=== PATIENT | male | born 1985 | race Caucasian/White ===

== ENCOUNTER 2017-03-30 09:33 | Emergency (ER) | payer OTHER ==
--- NOTE | 2017-03-30 09:38 | PDOC ---
History of Present Illness - General Chief Complaint: Bite Stated Complaint: ANIMAL BITE TO NOSE Time Seen by Provider: 03/30/17 09:35 - History of Present Illness Initial Comments: 03/30/17 09:48 31yo male presents ambulatory to the ED c/o being bitten by his Yorkie this AM while playing with the dog. States dog bit inside of nose. Pt with dried blood to center part of R nare - no active bleeding. The dog does belong to the patient and states rabies vaccine and all vaccines UTD. States his tetanus is UTD. Pt recently discharged from the [facility]. Pt denies all other complaints. No other cuts/bites. PMHx: denies PSHx: denies SOcial: smokes daily, etoh socially, denies drugs no home meds nkda Past History - Past Medical History Allergies/Adverse Reactions: Allergies Allergy/AdvReac Type Severity Reaction Status Date / Time No Known Allergies Allergy Unverified 03/30/17 09:40 Home Medications: Ambulatory Orders Amox-Tr/K Cl [Augmentin - 875Mg Tablet] 1 tab PO BID #14 tablet 03/30/17 Review of Systems - Review of Systems Able to Perform ROS?: Yes Is the patient limited Hungarian proficient: No Constitutional: No: Chills, Fever HEENTM: Yes: Nose Pain. No: Eye Pain, Blurred Vision, Nose Congestion, Throat Pain Respiratory: No: Cough, Shortness of Breath, Wheezing Cardiac (ROS): No: Chest Pain, Irregular Heart Rate ABD/GI: No: Diarrhea, Nausea, Vomiting : No: Burning, Dysuria Integumentary: Yes: Other (bite to inside of nose). No: Bruising, Erythema Neurological: No: Headache, Numbness All Other Systems: Reviewed and Negative *Physical Exam - Vital Signs 03/30/17 09:51 Selected Entries 03/30/17 09:34 Temperature 98.7 F Pulse Rate 82 Respiratory 16 Rate Blood Pressure 120/76 Blood Pressure 90 Mean O2 Sat by Pulse 100 Oximetry (%) Weight 77.111 kg - Physical Exam General Appearance: Yes: Nourished, Appropriately Dressed. No: Apparent Distress HEENT: positive: EOMI, Normal Voice, Pharynx Normal, Other (small bite kimberly to inside R nare - no active bleeding, puncture wound). negative: Rhinorrhea Neck: positive: Supple. negative: Rigid Respiratory/Chest: positive: Lungs Clear, Respiratory Distress Cardiovascular: positive: Regular Rhythm, Regular Rate Gastrointestinal/Abdominal: positive: Flat, Soft. negative: Guarding, Rebound, Tenderness Musculoskeletal: positive: Normal Inspection. negative: CVA Tenderness Extremity: positive: Normal Inspection, Normal Range of Motion Integumentary: positive: Normal Color, Dry, Warm, Other (bite to inside nose) Neurologic: positive: animal herder II-XII NML intact, Fully Oriented, Normal Mood/Affect , Motor Strength 08/08 Medical Decision Making - Medical Decision Making 03/30/17 09:44 a/p: 31yo male with yorky dog bite to R nare -tetanus UTD -dog belongs to the patient -rabies vaccines and all vaccines UTD for the dog -will wash out wound, will give bacitracin to wound, will start Augmentin -Pt stable for d/c to home -discussed all reasons to return to the ED and need for follow up. Answered all questions. *DC/Admit/Observation/Transfer Diagnosis at time of Disposition: Dog bite, Tobacco consumption - Discharge Dispostion Disposition: HOME Condition at time of disposition: Stable Admit: No - Prescriptions Prescriptions: Amox-Tr/K Cl [Augmentin - 875Mg Tablet] 1 tab PO BID #14 tablet - Referrals Referrals: José Manuel Alvarenga MD [Staff Physician] - - Patient Instructions Printed Discharge Instructions: DI for Animal Bites, Smoking Cessation Additional Instructions: Please take all antibiotics as prescribed. Please return to the ED with any further complaints. Please make an appointment to follow up with your PMD. Please stop smoking. - Post Discharge Activity
[2017-03-30] MEDS ORDERED: AMOX TR/POT CLAV 875MG/125MG TABLETS (FP) PO ONE (09:44)
[2017-03-30] MEDS ORDERED: BACITRACIN 15 GM TUBE TOPICAL OINTMENT TP ONE (09:44)
[2017-03-30 09:57] VITALS: BP 120/76; PULSE 82; TEMP 98.7; BMI 25.8
[2017-03-30] MEDS ORDERED: AMOX TR/POT CLAV 875MG/125MG TABLETS (FP) ONE (10:00)
== END 2017-03-30 10:05 | disposition home or self-care (01) ==
LOC: FER 09:33
DX: S01.25XA Open bite of nose, initial encounter (principal); W54.0XXA Bitten by dog, initial encounter; Y93.89 Activity, other specified; Y92.89 Other specified places as the place of occurrence of the external cause; F17.210 Nicotine dependence, cigarettes, uncomplicated
CPT/HCPCS: 99281-25